=== PATIENT | male | born 1965 | race Hispanic/Latino ===

== ENCOUNTER 2017-01-23 12:14 | Emergency (ER) | payer SELFPAY ==
--- NOTE | 2017-01-23 12:57 | Emergency Department Report ---
ED General Adult HPI - General Chief complaint: Pain General Stated complaint: GENERAL SICKNESS Time Seen by Provider: 01/23/17 12:40 Source: patient Mode of arrival: Stretcher Limitations: No Limitations - History of Present Illness Initial comments: Patient is 51 years old male with no significant past medical history brought by EMS today after he called and he said he is weak all over EMS when they got they rechecked his blood sugar was 34 was given dextrose. Patient stated since last night he's been feeling tired and fatigued. Patient told me that he did not eat for the last 4 days basically because he does not have money to buy fluid in his money he gave it for the rent. Patient denied any chest pain and shortness of breath nausea or vomiting. -: This morning - Related Data Previous Rx's Medication Instructions Recorded Last Taken Type Ondansetron [Zofran Odt] 4 mg PO Q6H #15 tab.rapdis 03/22/14 Unknown Rx oxyCODONE /ACETAMINOPHEN [Percocet 1 tab PO Q6HR PRN #15 tablet 03/22/14 Unknown Rx 5/325] Allergies Allergy/AdvReac Type Severity Reaction Status Date / Time Penicillins Allergy Unknown Verified 08/18/13 15:03 ED Review of Systems ROS: Stated complaint: GENERAL SICKNESS Other details as noted in HPI Comment: All other systems reviewed and negative Constitutional: denies: chills, fever Respiratory: cough, shortness of breath Cardiovascular: denies: chest pain, palpitations, dyspnea on exertion Gastrointestinal: denies: abdominal pain, nausea, vomiting, diarrhea, constipation, hematemesis, melena, hematochezia Genitourinary: denies: urgency, dysuria, frequency, hematuria Skin: denies: rash ED Past Medical Hx - Past Medical History Previous Medical History?: No - Surgical History Past Surgical History?: No Additional Surgical History: left eye surgery (child). orbital fx with surgery , Tonsillectomy - Social History Smoking Status: Current Every Day Smoker Substance Use Type: Alcohol - Medications Home Medications: Home Medications Medication Instructions Recorded Confirmed Last Taken Type Ondansetron [Zofran Odt] 4 mg PO Q6H #15 tab.rapdis 03/22/14 Unknown Rx oxyCODONE /ACETAMINOPHEN [Percocet 1 tab PO Q6HR PRN #15 tablet 03/22/14 Unknown Rx 5/325] ED Physical Exam - General Limitations: No Limitations General appearance: alert, in no apparent distress - Head Head exam: Present: atraumatic, normocephalic, normal inspection - Eye Eye exam: Present: normal appearance, PERRL, EOMI Pupils: Present: normal accommodation - ENT ENT exam: Present: normal exam, normal orophraynx, mucous membranes moist - Neck Neck exam: Present: normal inspection, full ROM. Absent: tenderness, meningismus - Respiratory Respiratory exam: Present: normal lung sounds bilaterally. Absent: respiratory distress, wheezes, rales, rhonchi, decreased breath sounds, prolonged expiratory - Cardiovascular Cardiovascular Exam: Present: regular rate, normal rhythm, normal heart sounds - GI/Abdominal GI/Abdominal exam: Present: soft. Absent: distended, tenderness, guarding, rebound, rigid, normal bowel sounds, diminished bowel sounds, mass, bruit, pulsatile mass, hernia - Extremities Exam Extremities exam: Present: normal inspection, full ROM, normal capillary refill - Back Exam Back exam: Present: normal inspection. Absent: CVA tenderness (R), CVA tenderness (L) - Neurological Exam Neurological exam: Present: alert, oriented X3, CN II-XII intact, normal gait, reflexes normal. Absent: motor sensory deficit - Psychiatric Psychiatric exam: Present: normal affect. Absent: depressed - Skin Skin exam: Present: warm, intact, normal color ED Course Vital Signs 01/23/17 01/23/17 12:39 12:46 Temperature 98 F 98 F Pulse Rate 100 H Respiratory 16 16 Rate Blood Pressure 113/64 Blood Pressure 113/64 [Left] O2 Sat by Pulse 96 Oximetry - Reevaluation(s) Reevaluation #1: 01/23/17 16:35 Patient stated that he is feeling much better. Inform him about his labs and x- ray which all come back unremarkable. Patient is asking for a meal tray before he leaves. I counseled the patient about proper nutrition and the need to follow up with his primary care physician. ED Medical Decision Making - Lab Data Result diagrams: 01/23/17 12:55 01/23/17 12:50 - EKG Data -: EKG Interpreted by Me EKG shows normal: sinus rhythm Rate: normal - EKG Data Interpretation: no acute changes - Radiology Data Radiology results: report reviewed Chest x-ray is unremarkable - Medical Decision Making Patient is feeling much better. I believe this hypoglycemia is due to lack of nutrition as patients inform me. Patient will be discharged home advised on the dangers of hypoglycemia which include patient understood. Critical care attestation.: If time is entered above; I have spent that time in minutes in the direct care of this critically ill patient, excluding procedure time. ED Disposition Clinical Impression: Generalized weakness, Hypoglycemia Disposition: DC-01 TO HOME OR SELFCARE Is pt being admited?: No Condition: Stable Instructions: Non-diabetic Hypoglycemia (ED)
[2017-01-23 13:14] LABS: Hemoglobin 16.1 gm/dl (11.8-15.2); Mean Corpuscular HGB Conc 33 % (32-34); Mean Corpuscular Hemoglobin 33 pg (28-32); Mean Corpuscular Volume 101 fl (84-94); Platelet Count 196 K/mm3 (140-440); Red Blood Count 4.86 M/mm3 (3.65-5.03); Red Cell Distribution Width 13.9 % (13.2-15.2); White Blood Count 10.9 K/mm3 (4.5-11.0)
[2017-01-23 13:22] LABS: Anion Gap 22 mmol/L; BUN/Creatinine Ratio 12.22; Blood Urea Nitrogen 11 mg/dL (9-20); Calcium 8.3 mg/dL (8.4-10.2); Carbon Dioxide 20 mmol/L (22-30); Chloride 106.9 mmol/L (98-107); Glucose 140 mg/dL (75-100); Potassium 3.7 mmol/L (3.6-5.0); Sodium 145 mmol/L (137-145)
[2017-01-23 13:22] LABS: INR 1.01 (0.87-1.13); Partial Thromboplastin Time 21.6 Sec. (24.2-36.6)
--- NOTE | 2017-01-23 14:14 | XRay Report ---
AP CHEST: HISTORY: chest pain AP view of the chest demonstrates a normal mediastinal and cardiac contour with clear lungs and normal bony and soft tissue structures. IMPRESSION: Unremarkable AP chest.
[2017-01-23 14:21] LABS: Basophils % (Manual) 0 % (0.0-1.8); Blastocytes % (Manual) 0 %; Eosinophils % (Manual) 0 % (0.0-4.3)
[2017-01-23 14:22] LABS: Ovalocytes 1+; Stomatocytes 1+
[2017-01-23 14:23] LABS: Diff Status Complete; Hypochromasia 1+; Platelet Estimate Consistent w Auto
[2017-01-23 14:58] LABS: Bilirubin,Urine NEG (Negative); Blood,Urine NEG (Negative); Ketones,Urine 80 mg/dL (Negative); Leukocyte Esterase,Urine TR (Negative); Mucus,Urine FEW /HPF; Nitrite,Urine NEG (Negative); Protein,Urine <15 mg/dL mg/dL (Negative); RBC,Urine < 1.0 /HPF (0.0-6.0); Urobilinogen,Urine < 2.0 mg/dL (<2.0)
[2017-01-23 16:47] VITALS: BP 114/69
== END 2017-01-23 16:52 | disposition home or self-care (01) ==
LOC: ED 12:14
DX: R53.1 Weakness (principal); E16.2 Hypoglycemia, unspecified; F17.200 Nicotine dependence, unspecified, uncomplicated; Z88.0 Allergy status to penicillin
CPT/HCPCS: 36415; 71010; 80048; 81001; 82962; 83880; 84484; 85007; 85025; 85610; 85730; 93005; 93010; 99284

== ENCOUNTER 2017-08-18 20:49 | Emergency (ER) | payer OTHER ==
[2017-08-18] MEDS ORDERED: BOOSTRIX IM ONE (21:28)
[2017-08-18] MEDS ORDERED: TYLENOL #3 PO ONE (21:28)
--- NOTE | 2017-08-18 21:31 | Emergency Department Report ---
ED General Adult HPI - General Chief complaint: Alcohol Stated complaint: ETOH Time Seen by Provider: 08/18/17 21:26 Source: patient, EMS Mode of arrival: Stretcher Limitations: Other - History of Present Illness Initial comments: Patient brought in by EMS from residence with report of feeling generally weak all day, with difficulty standing, reports that he has been falling, and had recently struck his forehead on the sidewalk from ground-level fall with brief loss of consciousness for approximately 30-60 seconds. He did not seek attention at that time, and injury to forehead was not proximate cause of his colon EMS. He is awake and oriented, has multiple complaints, but primarily complaints of weakness. He also has additional complaints of passage of fresh blood with any bowel movements for a long period of time, abdominal discomfort with straining at stool, and recurrent cough. He admits to imbibing alcohol, says that he has had a "good amount" today, but reported to EMS that he has not had any alcohol for 2 days.. Patient is awake, well oriented, has good recollection of events, is clinically stable on my screening examination with no focal weakness, stands and walks without difficulty, but is able to understand our need for CT scanning to rule out intracranial injury, the patient is difficult and uncooperative, with multiple episodes that make him dissatisfied, and on several occasions independently requests to leave. I have been able to calm patient each time, and ultimately patient accepts further evaluation to rule out head injury and to treat his left forehead wound. MD Complaint: forehead contusion with localized soreness, left knee discomfort with contu -: days(s) (1-2 days) Radiation: non-radiation Quality: aching Consistency: constant Improves with: none Worsens with: movement Associated Symptoms: cough, nausea/vomiting, syncope (related to recent fall, unwitnessed). denies: fever/chills, shortness of breath - Related Data Previous Rx's Medication Instructions Recorded Last Taken Type Ondansetron [Zofran Odt] 4 mg PO Q6H #15 tab.rapdis 03/22/14 Unknown Rx oxyCODONE /ACETAMINOPHEN [Percocet 1 tab PO Q6HR PRN #15 tablet 03/22/14 Unknown Rx 5/325] Allergies Allergy/AdvReac Type Severity Reaction Status Date / Time Penicillins Allergy Unknown Verified 08/18/13 15:03 ED Review of Systems ROS: Stated complaint: ETOH Other details as noted in HPI Constitutional: weakness. denies: fever Eyes: denies: eye pain ENT: other (forehead contusion) Respiratory: cough. denies: shortness of breath Cardiovascular: denies: chest pain, palpitations, dyspnea on exertion Endocrine: denies: excessive sweating, increased thirst, increased urine Gastrointestinal: constipation, other (bright red blood per rectum with straining at stool) Genitourinary: denies: urgency, dysuria Musculoskeletal: denies: back pain, joint swelling, arthralgia Skin: as per HPI, other (contusion left forehead) Neurological: headache (localized, left forehead, site of injury), weakness ( Gen., chronic). denies: confusion, vertigo Psychiatric: other (obsession with possibility of cancer) Hematological/Lymphatic: denies: easy bleeding ED Past Medical Hx - Past Medical History Previous Medical History?: Yes Hx of Cancer: Yes (Blood in stool x 1 year) Additional medical history: ETOH, Blood in stool x 1 year, questionable about colon cancer states 6 sisters have from Colon Cancer - Surgical History Past Surgical History?: No Additional Surgical History: left eye surgery (child). orbital fx with surgery , Tonsillectomy - Social History Smoking Status: Current Every Day Smoker Substance Use Type: Alcohol - Medications Home Medications: Home Medications Medication Instructions Recorded Confirmed Last Taken Type Ondansetron [Zofran Odt] 4 mg PO Q6H #15 tab.rapdis 03/22/14 Unknown Rx oxyCODONE /ACETAMINOPHEN [Percocet 1 tab PO Q6HR PRN #15 tablet 03/22/14 Unknown Rx 5/325] ED Physical Exam - General Limitations: Other General appearance: alert, in no apparent distress, other (speech is slurred, patient has contusion left forehead, but patient is clearly well oriented, and in no acute distress) - Head Head exam: Present: other (3 cm area left mid forehead just above the eyebrow, with contusion abrasion, but small amount of residual clotted blood, no bony defects) - Eye Eye exam: Present: PERRL, nystagmus (1-2+, bilateral, all directions) Pupils: Absent: unequal - ENT ENT exam: Present: normal exam - Neck Neck exam: Present: normal inspection. Absent: tenderness - Respiratory Respiratory exam: Present: normal lung sounds bilaterally. Absent: respiratory distress - Cardiovascular Cardiovascular Exam: Present: regular rate - GI/Abdominal GI/Abdominal exam: Present: soft. Absent: tenderness, guarding, rebound - Rectal Rectal exam: Present: heme (-) stool, hemorrhoids - Extremities Exam Extremities exam: Present: full ROM, tenderness (left anterior knee over patella with small 2 cm abrasion, no active bleeding, no swelling, full range of motion) ED Course Vital Signs 08/18/17 08/18/17 08/19/17 21:40 21:53 00:09 Temperature 97.7 F Pulse Rate 81 Respiratory 16 18 18 Rate Blood Pressure 108/69 [Left] O2 Sat by Pulse 100 Oximetry - Reevaluation(s) Reevaluation #1: 08/18/17 22:46 Patient remained stable on repeat examination, awake and oriented, generally cooperative, well oriented. Rectal examination performed, shows soft brown stool, heme-negative, significant prominent external and internal hemorrhoids identified. No active bleeding. No fresh blood. Reevaluation #2: 08/19/17 00:05 Patient remained stable on repeat examination at 005 hours, but patient is agitated, concerned about having to wait in order to have repeat blood alcohol level tested, and his inpatient to be going home. He remains awake and alert, in no acute distress, continues to complain of headache, then will be medicated with codeine, and IV will be removed at his request, as he has had fluids, and is currently stable for discharge once his repeat alcohol level has been confirmed. Reevaluation #3: 08/19/17 01:41 Patient is stable, neurologically intact, still has some residual headache, but somewhat improved, and blood alcohol has decreased. Patient is stable for discharge. ED Medical Decision Making - Lab Data Result diagrams: 08/18/17 21:27 08/18/17 21:27 - Radiology Data Radiology results: report reviewed CT scan negative for skull fracture or acute intracranial injury, but bilateral chronic sinusitis identified. Chest x-ray was clear with no acute cardio or pulmonary abnormalities, and left knee x-ray was also negative with no fracture or dislocation. - Medical Decision Making Patient has several active problems, primarily stemming from chronic alcohol abuse, but his immediate problem of weakness is probably secondary to dehydration, which is corroborated by hemoconcentration, and mild electrolyte abnormalities, the patient remained acutely intoxicated with a significant elevation of alcohol of 0.34, which is consistent with chronic active use. He is neurologically stable, and he is well oriented, and clearly has capacity, with no other findings of acute neurologic condition, no acute withdrawal symptoms, and no signs of active GI bleeding, with his complaints of bright red bleeding is likely result of his chronic hemorrhoids. Incidental note is made of chronic maxillary sinusitis, bilateral, and patient will be treated for this Patient reassured, was rehydrated with IV saline, and observed with repeat checks of alcohol levels. Patient will be discharged home, with prescription for Ceftin for his sinusitis. He should have repeat follow-up with his physician within a week. If he has continued problems with bleeding, pain may want to see a colon and rectal specialist for reevaluation of his hemorrhoids. Patient's advised to stop smoking and to stop alcohol drinking. - Differential Diagnosis Alcohol intoxication, head injury, knee contusion Critical Care Time: No Critical care attestation.: If time is entered above; I have spent that time in minutes in the direct care of this critically ill patient, excluding procedure time. ED Disposition Clinical Impression: Alcohol abuse, Dehydration, moderate Contusion of forehead Qualifiers: Encounter type: initial encounter Qualified Code(s): S00.83XA - Contusion of other part of head, initial encounter Alcohol intoxication Qualifiers: Complication of substance-induced condition: uncomplicated Qualified Code(s): F10.920 - Alcohol use, unspecified with intoxication, uncomplicated Contusion of knee, left Qualifiers: Encounter type: initial encounter Qualified Code(s): S80.02XA - Contusion of left knee, initial encounter Disposition: DC-01 TO HOME OR SELFCARE Is pt being admited?: No Does the pt Need Aspirin: No Condition: Stable Instructions: Alcohol Intoxication (ED), Scalp Contusion in Adults (ED) Additional Instructions: We recommend that you stop drinking, as alcohol abuse is most common cause of dehydration, falls, and serious injuries. The source of the blood with your bowel movement is coming from hemorrhoids, but she may follow up with a pool lifeguard if you're concerned about persistent symptoms. We do not give narcotics when patients are intoxicated, and her blood alcohol levels are still significantly elevated. We recommend that you take ibuprofen or Tylenol for headache, and apply ice packs and rest when you're uncomfortable. Have repeat examination by your doctor in 2-3 days. Referrals: STEVENSON REDDY MD [Primary Care Provider] - 3-5 Days Time of Disposition: 01:47
[2017-08-18 21:37] LABS: Basophils % (Auto) 0.7 % (0.0-1.8); Eosinophils # (Auto) 0.1 K/mm3 (0.0-0.4); Eosinophils % (Auto) 1.5 % (0.0-4.3); Hematocrit 51.7 % (35.5-45.6); Hemoglobin 17.7 gm/dl (11.8-15.2); Lymphocytes # (Auto) 1.9 K/mm3 (1.2-5.4); Mean Corpuscular HGB Conc 34 % (32-34); Mean Corpuscular Hemoglobin 33 pg (28-32); Mean Corpuscular Volume 96 fl (84-94); Monocytes # (Auto) 0.3 K/mm3 (0.0-0.8); Monocytes % (Auto) 5.6 % (0.0-7.3); Platelet Count 221 K/mm3 (140-440); Red Blood Count 5.39 M/mm3 (3.65-5.03); Red Cell Distribution Width 14.3 % (13.2-15.2)
--- NOTE | 2017-08-18 22:29 | Cat Scan Report ---
FINAL REPORT EXAM: CT HEAD/BRAIN WO CON HISTORY: fall w/ LOC, forehead abrasion; neuro normal TECHNIQUE: CT head without contrast PRIORS: None. FINDINGS: No acute intra-axial or extra-axial hemorrhage is identified. There is no evidence of midline shift or mass effect. The ventricles and sulci are within normal limits. Slater-white matter differentiation is intact. No acute parenchymal abnormalities seen. Bony calvarium is grossly intact. Noted is mucosal thickening within the maxillary sinus and anterior right maxillary sinus. IMPRESSION: No acute intracranial findings Evidence chronic maxillary sinusitis
[2017-08-18] MEDS ORDERED: NACL 0.9% 1000 ML 1,000 ML IV ONE (22:36)
[2017-08-18] MEDS ORDERED: ALUM-MAG HYDROX-SIMETH 200-200-20MG/5ML PO ONE (22:54)
--- NOTE | 2017-08-18 23:13 | XRay Report ---
FINAL REPORT PROCEDURE: XR KNEE 1-2V LT TECHNIQUE: LEFT knee radiographs, AP and lateral views. CPT 16791 HISTORY: contusion, GLF COMPARISON: No prior studies are available for comparison. FINDINGS: Fracture (s) and/or Dislocation(s): None . Alignment: Normal . Joint space(s): Joint spaces are maintained.. Soft tissues: Normal . Bone mineralization: Normal . Foreign bodies: None . IMPRESSION: No evidence of an acute fracture or dislocation.
--- NOTE | 2017-08-18 23:26 | XRay Report ---
FINAL REPORT PROCEDURE: XR CHEST ROUTINE 2V TECHNIQUE: PA and lateral chest radiographs were obtained. CPT 14593 HISTORY: cough congestion COMPARISON: No prior studies are available for comparison. FINDINGS: Heart: Normal. Mediastinum/Vessels: Normal. Lungs/Pleural space: Normal. Bony thorax: No acute osseous abnormality. Other: IMPRESSION: Normal examination.
[2017-08-19] MEDS ORDERED: TYLENOL #3 PO ONE (00:04)
[2017-08-19 02:06] VITALS: BP 126/66
== END 2017-08-19 02:06 | disposition home or self-care (01) ==
LOC: ED 20:49
DX: S00.83XA Contusion of other part of head, initial encounter (principal); S80.02XA Contusion of left knee, initial encounter; F17.200 Nicotine dependence, unspecified, uncomplicated; E86.0 Dehydration; F10.129 Alcohol abuse with intoxication, unspecified; Z79.899 Other long term (current) drug therapy; Z88.0 Allergy status to penicillin; W22.8XXA Striking against or struck by other objects, initial encounter; Y93.89 Activity, other specified; Y92.89 Other specified places as the place of occurrence of the external cause; Y99.8 Other external cause status
CPT/HCPCS: 36415; 70450; 71046; 73560; 80048; 82270; 85025; 90471; 90715; 96360; 99285; G0480; J7030; 80320

== ENCOUNTER 2018-02-03 21:25 | Emergency (ER) | payer SELFPAY ==
--- NOTE | 2018-02-03 22:47 | XRay Report ---
FINAL REPORT PROCEDURE: XR ANKLE 2V RT TECHNIQUE: AP and lateral view of the right ankle were obtained. HISTORY: hurt ankle today s/p fall . Pain. COMPARISON: No prior studies are available for comparison. FINDINGS: Minimal calcaneal spurring visualized. No fracture or dislocation is seen. Bone density appears normal. Soft tissues are unremarkable. No radiopaque foreign bodies are seen. IMPRESSION: No evidence of fracture or dislocation. Minimal calcaneal spurs visualized.
[2018-02-03] MEDS ORDERED: ZOFRAN IV ONE (23:31)
[2018-02-03] MEDS ORDERED: NACL 0.9% 1000 ML 1,000 ML IV ONE (23:31)
[2018-02-03] MEDS ORDERED: SUBLIMAZE IV ONE (23:31)
--- NOTE | 2018-02-03 23:56 | Emergency Department Report ---
ED Fall HPI - General Chief Complaint: Extremity Injury, Lower Stated Complaint: RT LEG NUMBNESS/PAIN Time Seen by Provider: 02/03/18 23:17 Source: patient, EMS Mode of arrival: Stretcher - History of Present Illness Initial Comments: Patient c/o ground level fall at home after drinking alcohol. Patient is a poor historian and he is not co-operative with the medical staff. He is rude and insulting to the medical personnel. MD Complaint: fall -: Sudden Fall From: standing When Fall Occurred: just prior to arrival Fall Witnessed: no Place Fall Occurred: home Loss of Consciousness: unsure Prolonged Down Time?: no Symptoms Prior to Fall: none Location: head Location - Extremities: Right: Knee, Leg, Ankle, Foot Severity: moderate Severity scale (0 -10): 6 Quality: sharp Context: alcohol use Associated Symptoms: headache, neck pain - Related Data Previous Rx's Medication Instructions Recorded Last Taken Type Ondansetron [Zofran Odt] 4 mg PO Q6H #15 tab.rapdis 03/22/14 Unknown Rx oxyCODONE /ACETAMINOPHEN [Percocet 1 tab PO Q6HR PRN #15 tablet 03/22/14 Unknown Rx 5/325] Methocarbamol [Robaxin-750] 750 mg PO Q6HR PRN #20 tablet 02/06/18 Unknown Rx Naproxen [Naprosyn] 500 mg PO BID #20 tablet 02/06/18 Unknown Rx Allergies Allergy/AdvReac Type Severity Reaction Status Date / Time Penicillins Allergy Unknown Verified 08/18/13 15:03 ED Review of Systems ROS: Stated complaint: RT LEG NUMBNESS/PAIN Other details as noted in HPI Comment: All other systems reviewed and negative Constitutional: denies: chills, fever Eyes: denies: eye pain ENT: denies: ear pain Respiratory: denies: cough, orthopnea, shortness of breath Cardiovascular: denies: chest pain, palpitations, dyspnea on exertion, orthopnea Endocrine: no symptoms reported Gastrointestinal: denies: abdominal pain, nausea, vomiting, diarrhea Genitourinary: denies: urgency, dysuria Musculoskeletal: other (Right leg pain.). denies: back pain, joint swelling Skin: denies: rash, lesions Neurological: headache. denies: weakness, numbness, paresthesias, confusion Psychiatric: denies: anxiety, depression Hematological/Lymphatic: denies: easy bleeding, easy bruising ED Past Medical Hx - Past Medical History Previous Medical History?: Yes Additional medical history: ETOH, Blood in stool x 1 year, questionable about colon cancer states 6 sisters have from Colon Cancer - Surgical History Past Surgical History?: Yes Additional Surgical History: left eye surgery (child). orbital fx with surgery , Tonsillectomy - Social History Smoking Status: Unknown if ever smoked Substance Use Type: Alcohol - Medications Home Medications: Home Medications Medication Instructions Recorded Confirmed Last Taken Type Ondansetron [Zofran Odt] 4 mg PO Q6H #15 tab.rapdis 03/22/14 Unknown Rx oxyCODONE /ACETAMINOPHEN [Percocet 1 tab PO Q6HR PRN #15 tablet 03/22/14 Unknown Rx 5/325] Methocarbamol [Robaxin-750] 750 mg PO Q6HR PRN #20 tablet 02/06/18 Unknown Rx Naproxen [Naprosyn] 500 mg PO BID #20 tablet 02/06/18 Unknown Rx ED Physical Exam - General Limitations: No Limitations General appearance: alert, appears intoxicated - Head Head exam: Present: atraumatic, normocephalic, normal inspection - Eye Eye exam: Present: normal appearance, PERRL, EOMI - ENT ENT exam: Present: normal exam, other (ETOH breath) - Neck Neck exam: Present: normal inspection, full ROM. Absent: tenderness - Respiratory Respiratory exam: Present: normal lung sounds bilaterally. Absent: respiratory distress, wheezes, rales, rhonchi, stridor - Cardiovascular Cardiovascular Exam: Present: regular rate, normal rhythm, normal heart sounds - GI/Abdominal GI/Abdominal exam: Present: soft, normal bowel sounds. Absent: distended, tenderness, guarding, rebound, rigid - Extremities Exam Extremities exam: Present: normal inspection, full ROM, normal capillary refill - Back Exam Back exam: Present: normal inspection, full ROM. Absent: tenderness, CVA tenderness (R), CVA tenderness (L) - Neurological Exam Neurological exam: Present: alert, altered - Psychiatric Psychiatric exam: Present: agitated, anxious. Absent: homicidal ideation, suicidal ideation - Skin Skin exam: Present: warm, dry, intact, normal color. Absent: rash ED Course Vital Signs 02/03/18 02/03/18 02/04/18 21:32 23:20 01:19 Temperature 98.9 F 98.6 F Pulse Rate 89 79 Respiratory 18 18 Rate Blood Pressure 110/79 130/81 Blood Pressure 130/81 [Right] O2 Sat by Pulse 93 99 97 Oximetry 02/04/18 02/04/18 02/04/18 02:00 03:01 04:00 Temperature Pulse Rate Respiratory Rate Blood Pressure 110/57 107/73 144/83 Blood Pressure [Right] O2 Sat by Pulse 91 Oximetry 02/04/18 02/04/18 02/04/18 05:00 06:00 07:00 Temperature Pulse Rate 90 103 H 97 H Respiratory 14 15 14 Rate Blood Pressure 144/83 114/69 126/69 Blood Pressure [Right] O2 Sat by Pulse 100 99 98 Oximetry 02/04/18 02/04/18 02/04/18 08:00 09:00 10:00 Temperature Pulse Rate 81 82 78 Respiratory 13 14 13 Rate Blood Pressure 98/46 98/46 107/69 Blood Pressure [Right] O2 Sat by Pulse 90 92 95 Oximetry 02/04/18 02/04/18 02/04/18 11:00 12:00 13:00 Temperature Pulse Rate 74 77 84 Respiratory 14 13 14 Rate Blood Pressure 103/69 99/63 92/65 Blood Pressure [Right] O2 Sat by Pulse 96 98 94 Oximetry 02/04/18 02/04/18 02/04/18 20:00 21:00 22:00 Temperature 99.0 F Pulse Rate 79 66 79 Respiratory 18 10 L 12 Rate Blood Pressure 113/59 108/76 Blood Pressure 137/80 [Right] O2 Sat by Pulse 98 95 Oximetry ED Medical Decision Making - Lab Data Result diagrams: 02/03/18 23:48 02/03/18 23:48 Lab Results 02/03/18 02/03/18 02/03/18 Range/Units 23:48 23:48 23:48 WBC 5.7 (4.5-11.0) K/mm3 RBC 4.75 (3.65-5.03) M/mm3 Hgb 17.0 H (11.8-15.2) gm/dl Hct 48.4 H (35.5-45.6) % MCV 102 H (84-94) fl MCH 36 H (28-32) pg MCHC 35 H (32-34) % RDW 14.7 (13.2-15.2) % Plt Count 203 (140-440) K/mm3 Lymph % (Auto) 28.1 (13.4-35.0) % Meade % (Auto) 7.0 (0.0-7.3) % Eos % (Auto) 1.4 (0.0-4.3) % Baso % (Auto) 0.6 (0.0-1.8) % Lymph # 1.6 (1.2-5.4) K/mm3 Meade # 0.4 (0.0-0.8) K/mm3 Eos # 0.1 (0.0-0.4) K/mm3 Baso # 0.0 (0.0-0.1) K/mm3 Seg Neutrophils % 62.9 (40.0-70.0) % Seg Neutrophils # 3.6 (1.8-7.7) K/mm3 PT 12.5 (12.2-14.9) Sec. INR 0.89 (0.87-1.13) APTT 23.4 L (24.2-36.6) Sec. Sodium 148 H (137-145) mmol/L Potassium 3.7 (3.6-5.0) mmol/L Chloride 110.0 H (98-107) mmol/L Carbon Dioxide 21 L (22-30) mmol/L Anion Gap 21 mmol/L BUN 7 L (9-20) mg/dL Creatinine 1.0 (0.8-1.5) mg/dL Estimated GFR > 60 ml/min BUN/Creatinine Ratio 7 % Glucose 121 H (75-100) mg/dL Calcium 8.1 L (8.4-10.2) mg/dL Total Bilirubin 0.20 (0.1-1.2) mg/dL AST 39 (5-40) units/L ALT 39 (7-56) units/L Alkaline Phosphatase 93 (35-129) units/L Total Protein 6.2 L (6.3-8.2) g/dL Albumin 3.7 L (3.9-5) g/dL Albumin/Globulin Ratio 1.5 % Plasma/Serum Alcohol (0-0.07) % 02/03/18 Range/Units 23:48 WBC (4.5-11.0) K/mm3 RBC (3.65-5.03) M/mm3 Hgb (11.8-15.2) gm/dl Hct (35.5-45.6) % MCV (84-94) fl MCH (28-32) pg MCHC (32-34) % RDW (13.2-15.2) % Plt Count (140-440) K/mm3 Lymph % (Auto) (13.4-35.0) % Meade % (Auto) (0.0-7.3) % Eos % (Auto) (0.0-4.3) % Baso % (Auto) (0.0-1.8) % Lymph # (1.2-5.4) K/mm3 Meade # (0.0-0.8) K/mm3 Eos # (0.0-0.4) K/mm3 Baso # (0.0-0.1) K/mm3 Seg Neutrophils % (40.0-70.0) % Seg Neutrophils # (1.8-7.7) K/mm3 PT (12.2-14.9) Sec. INR (0.87-1.13) APTT (24.2-36.6) Sec. Sodium (137-145) mmol/L Potassium (3.6-5.0) mmol/L Chloride (98-107) mmol/L Carbon Dioxide (22-30) mmol/L Anion Gap mmol/L BUN (9-20) mg/dL Creatinine (0.8-1.5) mg/dL Estimated GFR ml/min BUN/Creatinine Ratio % Glucose (75-100) mg/dL Calcium (8.4-10.2) mg/dL Total Bilirubin (0.1-1.2) mg/dL AST (5-40) units/L ALT (7-56) units/L Alkaline Phosphatase (35-129) units/L Total Protein (6.3-8.2) g/dL Albumin (3.9-5) g/dL Albumin/Globulin Ratio % Plasma/Serum Alcohol 0.34 H (0-0.07) % - Radiology Data Radiology results: report reviewed, image reviewed Negative imaging study. - Medical Decision Making Patient is too intoxicated to be discharged home. Patient was signed out to Dr Long at shift change pending sobriety and mental health evaluation. Critical Care Time: Yes Critical care time in (mins) excluding proc time.: 40 Critical care attestation.: If time is entered above; I have spent that time in minutes in the direct care of this critically ill patient, excluding procedure time. ED Disposition Clinical Impression: Alcohol intoxication Qualifiers: Complication of substance-induced condition: with unspecified complication Qualified Code(s): F10.929 - Alcohol use, unspecified with intoxication, unspecified Fall Qualifiers: Encounter type: initial encounter Qualified Code(s): W19.XXXA - Unspecified fall, initial encounter Disposition: DC-01 TO HOME OR SELFCARE Is pt being admited?: No Does the pt Need Aspirin: No Condition: Stable Instructions: Abuse of Alcohol (ED) Referrals: [facility] [Outside] - 3-5 Days PRIMARY CARE, [Primary Care Provider] - 3-5 Days
[2018-02-04 00:08] LABS: Basophils % (Auto) 0.6 % (0.0-1.8); Eosinophils # (Auto) 0.1 K/mm3 (0.0-0.4); Eosinophils % (Auto) 1.4 % (0.0-4.3); Hematocrit 48.4 % (35.5-45.6); Lymphocytes # (Auto) 1.6 K/mm3 (1.2-5.4); Lymphocytes % (Auto) 28.1 % (13.4-35.0); Mean Corpuscular HGB Conc 35 % (32-34); Mean Corpuscular Hemoglobin 36 pg (28-32); Mean Corpuscular Volume 102 fl (84-94); Monocytes # (Auto) 0.4 K/mm3 (0.0-0.8); Platelet Count 203 K/mm3 (140-440); Red Blood Count 4.75 M/mm3 (3.65-5.03); Red Cell Distribution Width 14.7 % (13.2-15.2)
[2018-02-04 00:16] LABS: INR 0.89 (0.87-1.13); Partial Thromboplastin Time 23.4 Sec. (24.2-36.6)
[2018-02-04 00:54] LABS: Alanine Aminotransferase 39 units/L (7-56); Albumin 3.7 g/dL (3.9-5); BUN/Creatinine Ratio 7; Blood Urea Nitrogen 7 mg/dL (9-20); Calcium 8.1 mg/dL (8.4-10.2); Hemolysis Index 35
[2018-02-04] MEDS ORDERED: VITAMIN B-1 100 MG, FOLVITE 1 MG, INFUVITE 10 ML in NACL 0.9% 1000 ML 1,000 ML IV ONE (01:29)
[2018-02-04] MEDS ORDERED: PERCOCET 5/325 PO ONE (01:30)
[2018-02-04] MEDS ORDERED: ATIVAN IV ONE ×2 (01:40→01:49)
--- NOTE | 2018-02-04 01:44 | XRay Report ---
FINAL REPORT PROCEDURE: XR KNEE 1-2V RT TECHNIQUE: Right knee radiographs, AP and lateral views. HISTORY: knee pain, s/p fall COMPARISON: No prior studies are available for comparison. FINDINGS: Fracture (s) and/or Dislocation(s): None . Joint space(s): Normal. Soft tissues: Normal. Bone mineralization: Normal. Foreign bodies: None. IMPRESSION: Normal Examination.
--- NOTE | 2018-02-04 01:44 | XRay Report ---
FINAL REPORT PROCEDURE: XR HIP 2-3V RT TECHNIQUE: LEFT hip radiographs, 2 views each, including AP view of the pelvis. HISTORY: Right hip pain after fall in shower COMPARISON: No prior studies are available for comparison. FINDINGS: Fracture (s) and/or Dislocation(s): None . Joint space(s): Normal. Soft tissues: Normal. Bone mineralization: Normal. Foreign bodies: None. IMPRESSION: Normal Examination.
--- NOTE | 2018-02-04 01:46 | XRay Report ---
FINAL REPORT PROCEDURE: XR ANKLE 2V RT TECHNIQUE: RIGHT ankle radiographs, AP and lateral views. HISTORY: ankle pain, s/p fall COMPARISON: No prior studies are available for comparison. FINDINGS: Fracture (s) and/or Dislocation(s): None. Alignment: Normal. Joint space(s): Normal. Soft tissues: Normal. Bone mineralization: Normal. Foreign bodies: Normal. Calcaneal spurring: Normal. IMPRESSION: Normal Examination .
--- NOTE | 2018-02-04 01:47 | XRay Report ---
FINAL REPORT PROCEDURE: XR TIBIA FIBULA 2V RT TECHNIQUE: RIGHT tibia and fibula radiographs, AP and lateral views. CPT 40959 HISTORY: leg Pain, s/p Fall COMPARISON: No prior studies are available for comparison. FINDINGS: Fracture (s) and/or Dislocation(s): None . Joint space(s): Normal . Soft tissues: Normal . Bone mineralization: Normal . Foreign bodies: None . IMPRESSION: Normal Examination.
--- NOTE | 2018-02-04 02:01 | Cat Scan Report ---
FINAL REPORT PROCEDURE: CT HEAD/BRAIN WO CON TECHNIQUE: Computerized tomography of the head was performed without contrast material. HISTORY: head injury ETOH COMPARISON: No prior studies are available for comparison. FINDINGS: Skull and scalp: Normal. Paranasal sinuses: Normal. Ventricles and subarachnoid spaces: Normal. Cerebrum: No evidence of hemorrhage, acute infarction or mass . Cerebellum and brainstem: No evidence of hemorrhage, acute infarction or mass. Vasculature: Normal. Comments: None. IMPRESSION: Normal Examination
--- NOTE | 2018-02-04 02:02 | Cat Scan Report ---
FINAL REPORT PROCEDURE: CT CERVICAL SPINE WO CON TECHNIQUE: Computerized tomography of the cervical spine was performed from the skull base to T1 without contrast material. HISTORY: fall COMPARISON: No prior studies are available for comparison. FINDINGS: There is no fracture or dislocation. C1-2: No significant abnormality. C2-3: No significant abnormality. C3-4: There is mild loss of disc height and disc bulging.. C4-5: No significant abnormality. C5-6: No significant abnormality. C6-7: No significant abnormality. C7-T1: No significant abnormality. Other: Soft tissues are unremarkable.. IMPRESSION: No significant abnormality.
--- NOTE | 2018-02-04 02:07 | XRay Report ---
FINAL REPORT PROCEDURE: XR CHEST 1V AP TECHNIQUE: Chest radiograph anteroposterior view. CPT 62420 HISTORY: chest pain s/p fall COMPARISON: No prior studies are available for comparison. FINDINGS: Heart: Normal. Mediastinum/Vessels: Normal. Lungs/Pleural space: Normal. Bony thorax: No acute osseous abnormality. Life support devices: None. IMPRESSION: No acute cardiopulmonary abnormality.
[2018-02-04] MEDS ORDERED: GEODON IM ONE (02:51)
[2018-02-04] MEDS ORDERED: HABITROL TD ONE (03:13)
--- NOTE | 2018-02-04 11:46 | Consultation ---
History of Present Illness - Reason for Consult Consult date: 02/04/18 Reason for consult: Mental Health Evaluation Requesting physician: GAYLA WHALEY - Chief Complaint Chief complaint: "The patient's speech is incoherent" - History of Present Psychiatric Illness 52 y.o. white male presenting to the ER for alcohol intoxication. Today the patient has incoherent speech and disorganized during the assessment. He could not answer any questions logically. No gestures of SI/HI's . Medications and Allergies Allergies Allergy/AdvReac Type Severity Reaction Status Date / Time Penicillins Allergy Unknown Verified 08/18/13 15:03 Home Medications Medication Instructions Recorded Confirmed Last Taken Type Ondansetron [Zofran Odt] 4 mg PO Q6H #15 tab.rapdis 03/22/14 Unknown Rx oxyCODONE /ACETAMINOPHEN [Percocet 1 tab PO Q6HR PRN #15 tablet 03/22/14 Unknown Rx 5/325] Past psychiatric history - Past Medical History Past Medical History: other (Unable to obtain) Past Surgical History: Other (Unable to obtain) - past Psychiatric treatment and history psychiatric treatment history: Unable to obtain a psh hx and fam psy hx. - Social History Social history: other (Unable to obtain) Mental Status Exam - Vital signs Last Vital Signs Temp 98.6 F 02/03/18 23:20 Pulse 97 H 02/04/18 07:00 Resp 14 02/04/18 07:00 BP 126/69 02/04/18 07:00 Pulse Ox 98 02/04/18 07:00 - Exam Narrative exam: Unable to complete the MSE because of the patient's condition. Results Result Diagrams: 02/03/18 23:48 02/03/18 23:48 Abnormal lab results 02/03/18 02/03/18 02/03/18 Range/Units 23:48 23:48 23:48 Hgb 17.0 H (11.8-15.2) gm/dl Hct 48.4 H (35.5-45.6) % MCV 102 H (84-94) fl MCH 36 H (28-32) pg MCHC 35 H (32-34) % APTT 23.4 L (24.2-36.6) Sec. Sodium 148 H (137-145) mmol/L Chloride 110.0 H (98-107) mmol/L Carbon Dioxide 21 L (22-30) mmol/L BUN 7 L (9-20) mg/dL Glucose 121 H (75-100) mg/dL POC Glucose (70-105) Calcium 8.1 L (8.4-10.2) mg/dL Total Protein 6.2 L (6.3-8.2) g/dL Albumin 3.7 L (3.9-5) g/dL Plasma/Serum Alcohol (0-0.07) % 02/03/18 02/04/18 Range/Units 23:48 06:05 Hgb (11.8-15.2) gm/dl Hct (35.5-45.6) % MCV (84-94) fl MCH (28-32) pg MCHC (32-34) % APTT (24.2-36.6) Sec. Sodium (137-145) mmol/L Chloride (98-107) mmol/L Carbon Dioxide (22-30) mmol/L BUN (9-20) mg/dL Glucose (75-100) mg/dL POC Glucose 137 H (70-105) Calcium (8.4-10.2) mg/dL Total Protein (6.3-8.2) g/dL Albumin (3.9-5) g/dL Plasma/Serum Alcohol 0.34 H (0-0.07) % All other labs normal. Assessment and Plan Assessment and plan: Impression: Alcohol Use DO. Alcohol intoxication on admission to the ER. Today the patient has incoherent speech and disorganized during the assessment. Recommendation/Plan: Continue 1013 and attempt to reassess the patient in 24 hours. Will be staffed with Dr. Dany Ness.
[2018-02-04 14:12] LABS: Color,Urine Yellow (Yellow)
[2018-02-04 14:13] LABS: Bilirubin,Urine NEG (Negative); Blood,Urine NEG (Negative); Mucus,Urine FEW /HPF; Protein,Urine <15 mg/dL mg/dL (Negative); Urobilinogen,Urine < 2.0 mg/dL (<2.0); WBC,Urine < 1.0 /HPF (0.0-6.0)
[2018-02-04 14:22] LABS: Amphetamine Screen,Urine PRESUMPTIVE NEGATIVE; Benzodiazepines Screen,Urine PRESUMPTIVE NEGATIVE; Cannabinoid Screen,Urine PRESUMPTIVE NEGATIVE; Cocaine Screen,Urine PRESUMPTIVE NEGATIVE; Methadone Screen,Urine PRESUMPTIVE NEGATIVE; Opiate Screen,Urine PRESUMPTIVE NEGATIVE
[2018-02-05 05:56] VITALS: BP 108/76
--- NOTE | 2018-02-05 14:27 | Progress Note ---
Subjective - Reason for Consult Consult date: 02/05/18 Reason for consult: Psychiatry Follow-up - Chief Complaint Chief complaint: "The patient's speech is incoherent" Mental Status Exam - Vital signs Last Vital Signs Temp 99.0 F 02/04/18 20:00 Pulse 79 02/04/18 22:00 Resp 12 02/04/18 22:00 BP 108/76 02/04/18 22:00 Pulse Ox 95 02/04/18 21:00
--- NOTE | 2018-02-05 14:31 | Progress Note ---
Subjective - Reason for Consult Consult date: 02/05/18 Reason for consult: Psychiatry Follow-up - Chief Complaint Chief complaint: "The was partying with friends" 52 y.o. white male presenting to the ER for alcohol intoxication. Today the patient is calm and cooperative during the assessment. He stated that he was drinking with his friends and became intoxicated. He stated that he drink (etoh ) "mostly" on the weekends. He stated that he feel that he doesn't have a issue with "drinking," but can limit his alcohol consumption (etoh). He denies a mood/ psychotic do when asked. He stated that he is willing to follow up with rehab services when discharged. He denies SI/HI's and AVH's. He denies a poor appetite and erratic sleep. He denies recreational drug use. Mental Status Exam - Vital signs Last Vital Signs Temp 99.0 F 02/04/18 20:00 Pulse 79 02/04/18 22:00 Resp 12 02/04/18 22:00 BP 108/76 02/04/18 22:00 Pulse Ox 95 02/04/18 21:00 - Exam Narrative exam: MSE: Appearance: calm, cooperative Behavior: regular eye contact Speech: regular rate and tone Mood: "okay" Affect: congruent to mood Thought Process: linear Thought Content: denies SI/HI's and AVH's Motor Activity: sitting up in the bed Cognition: A/O x 3 Insight: appropriate Judgment: appropriate Assessment and Plan Impression: Alcohol Use DO. Alcohol intoxication on admission to the ER. Today the patient is calm and cooperative during the assessment. The patient is no threat to seld. Recommendation/Plan: Rescind 1013. Dispo: The patient can follow up with [facility] for rehab services. Staffed with Dr. Dany Ness.
== END 2018-02-05 15:20 | disposition home or self-care (01) ==
LOC: ED 21:25 → EEVIPCON 21:25 → ED 02-05 15:20
DX: F10.929 Alcohol use, unspecified with intoxication, unspecified (principal); Z90.89 Acquired absence of other organs; Z79.899 Other long term (current) drug therapy; Z88.0 Allergy status to penicillin
CPT/HCPCS: 36415; 70450; 71045; 73502; 73560; 73590; 73600; 80053; 85025; 85610; 85730; 99291; G0480; J2060; J2405; J3010; J3411; J3486; J7030; 80307; 80320; 81001; 82962

== ENCOUNTER 2018-02-06 19:30 | Emergency (ER) | payer SELFPAY ==
[2018-02-06] MEDS ORDERED: TYLENOL ONE (20:22)
--- NOTE | 2018-02-06 22:57 | Cat Scan Report ---
FINAL REPORT PROCEDURE: CT PELVIS WO CON TECHNIQUE: Computerized axial tomography of the pelvis was performed without contrast material. HISTORY: fall, R hip pain COMPARISON: No prior studies are available for comparison. TECHNICAL QUALITY: Satisfactory. FINDINGS: Pelvic viscera unremarkable. Bilateral hip joints demonstrate normal alignment without evidence of an acute fracture. There is evidence of an old healed fracture deformity of the right iliac bone with extensive callus formation. Otherwise remaining bones are unremarkable. Soft tissues are within normal limits.. IMPRESSION: Impression No acute fracture Old healed fracture deformity of right iliac bone with extensive callus formation.
[2018-02-06] MEDS ORDERED: TORADOL IM ONE (23:13)
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
[2018-02-07 00:01] VITALS: BP 113/73
== END 2018-02-07 00:01 | disposition home or self-care (01) ==
LOC: ED 19:30
DX: S16.1XXA Strain of muscle, fascia and tendon at neck level, initial encounter (principal); S93.401A Sprain of unspecified ligament of right ankle, initial encounter; S70.01XA Contusion of right hip, initial encounter; R51 Headache; F17.200 Nicotine dependence, unspecified, uncomplicated; Z88.0 Allergy status to penicillin; Z90.89 Acquired absence of other organs; Z79.899 Other long term (current) drug therapy; W19.XXXA Unspecified fall, initial encounter; Y93.89 Activity, other specified; Y99.8 Other external cause status; Y92.89 Other specified places as the place of occurrence of the external cause
CPT/HCPCS: 72192; 96372; 99283; J1885

== ENCOUNTER 2018-06-27 17:02 | Emergency (ER) | payer SELFPAY ==
[2018-06-27 17:11] VITALS: BP 115/73
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
[2018-06-27] MEDS ORDERED: TYLENOL PO ONE (20:42)
[2018-06-27] MEDS ORDERED: MOTRIN PO ONE ×2 (20:42→20:43)
[2018-06-27] MEDS ORDERED: TYLENOL ONE (20:43)
== END 2018-06-27 20:44 | disposition home or self-care (01) ==
LOC: ED 17:02
DX: H83.3X1 Noise effects on right inner ear (principal); F17.200 Nicotine dependence, unspecified, uncomplicated; Z90.89 Acquired absence of other organs; Z88.0 Allergy status to penicillin
CPT/HCPCS: 99282